=== PATIENT | male | born 1965 | race Caucasian/White ===

== ENCOUNTER 2022-11-11 09:52 | Emergency (ER) | payer OTHER ==
[~2022-11-11] VITALS: Ht 190.5 cm; Wt 112.5 kg
[2022-11-11 10:41] VITALS: BP 132/100
[2022-11-11] MEDS ORDERED: Percocet 5-3251 EACH PO (12:35)
== END 2022-11-11 14:15 | disposition home or self-care (01) ==
LOC: ER 09:52
DX: S82.451A Displaced comminuted fracture of shaft of right fibula, initial encounter for closed fracture (principal); W11.XXXA Fall on and from ladder, initial encounter
CPT/HCPCS: 73590; 73610